=== PATIENT | female | born 1960 | race Two or more races ===

== ENCOUNTER 2017-02-03 18:48 | Emergency (ER) | payer OTHER ==
[~2017-02-03] VITALS: Ht 152.4 cm; Wt 57.6 kg
[~2017-02-03 18:48] MED LIST: AZIT250T PO; PRED20TA PO; PROM118S2 PO
--- NOTE | 2017-02-03 19:28 | EKG ---
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
[2017-02-03] MEDS ORDERED: IV NORMAL SALINE 1,000ML 1,000 ML IV SCH (19:30)
[2017-02-03] MEDS ORDERED: 0.9 % SODIUM CHLORIDE 10 ML DISP.SYRIN. IV ONE (19:30)
[2017-02-03] MEDS ORDERED: IOHEXOL 300 MG/ML 75 ML VIAL. IV ONE (19:30)
[2017-02-03 20:08] LABS: BASO % 0 % (0-3); EOS # 0.2 x10^3/uL (0.0-0.7); EOS % 6 % (0-3); HEMATOCRIT 39.6 % (36.0-47.0); HEMOGLOBIN 13.5 g/dL (12.0-15.5); LYMPH # 0.8 x10^3/uL (1.0-4.8); LYMPH % 18 % (24-48); MEAN CORPUSCULAR HEMOGLOBIN 30 pg (25-35); MEAN CORPUSCULAR HGB CONC 34 g/dL (31-37); MEAN CORPUSCULAR VOLUME 88 fL (79-100); MONO # 0.5 x10^3/uL (0.0-1.1); MONO % 11 % (0-9); NEUT # 2.9 x10^3uL (1.8-7.7); NEUT % 66 % (31-73); PLATELET COUNT 189 x10^3/uL (140-400); RED BLOOD COUNT 4.51 x10^6/uL (3.50-5.40); RED CELL DISTRIBUTION WIDTH 12.7 % (11.5-14.5); WHITE BLOOD COUNT 4.4 x10^3/uL (4.0-11.0)
--- NOTE | 2017-02-03 20:17 | PHYS DOC ---
Past History Past Medical History: No Pertinent History Past Surgical History: No Surgical History Alcohol Use: None Drug Use: None Adult General Chief Complaint Chief Complaint: COUGH HPI HPI She is a pleasant retired 56-year-old female from the [employer] with a history of hypothyroidism and hypertension who presents with a cough that began suddenly after a choking episode while trying to ingest chicken. Her symptoms began approximately 3 days ago while she was eating she felt that she may have actually aspirated a small portion of chicken and her trachea. Since that time she's had increasing worsening nonproductive cough with difficulty clearing her throat. She denies any change in voice, she has had some ear pressure and pain along with nasal congestion. She denies any difficulty tolerating food and fluids at this time. She has seen her primary care doctor twice this week and prescribed cough syrup with codeine and Motrin which has not improved her symptoms. She does relate a brief course of chills and fevers and myalgias that began shortly after the aspiration. She is taking some Tylenol and Motrin but never documented fever. She denies any recent anabiotic use, sick contacts, travel outside the country, or chest pain. She denies any shortness of breath, abdominal pain, rash, joint pain other than the myalgias. Review of Systems Review of Systems Constitutional: Has had some subjective fevers and chills but nothing documented. Eyes: Denies change in visual acuity, redness, or eye pain [] HENT: Has had some nasal congestion and no sore throat despite cough[] Respiratory: He has had a nonproductive cough but no shortness of breath.[] Cardiovascular: No additional information not addressed in HPI [] GI: Denies abdominal pain, nausea, vomiting, bloody stools or diarrhea [] : Denies dysuria or hematuria [] Musculoskeletal: Denies back pain or joint pain she complains of generalized myalgias Integument: Denies rash or skin lesions [] Neurologic: Denies headache, focal weakness or sensory changes [] Endocrine: Denies polyuria or polydipsia [] All other systems were reviewed and found to be within normal limits, except as documented in this note. Current Medications Current Medications Current Medications Medications (Trade) Dose Ordered Sig/Bigg Start Time Stop Time Status Last Admin Dose Admin Iohexol (Omnipaque 300 Mg/ml) 75 ml 1X ONCE 02/03/17 19:30 02/03/17 19:31 DC Sodium Chloride 1,000 ml @ 1,000 mls/hr Q1H 02/03/17 19:30 02/03/17 20:29 02/03/17 19:39 1,000 MLS/HR Sodium Chloride (Normal Saline Flush) 10 ml 1X ONCE 02/03/17 19:30 02/03/17 19:31 DC 02/03/17 19:30 10 ML Allergies Allergies Allergies Coded Allergies Type Severity Reaction Last Updated Verified No Known Allergies Allergy Unknown 02/03/17 Yes Physical Exam Physical Exam Vital signs recorded on the chart patient noted to be hypertensive otherwise normal vital signs Constitutional: Well developed, well nourished, no acute distress, non-toxic appearance. [] HENT: Normocephalic, atraumatic, bilateral external ears normal, oropharynx moist, no oral exudates demonstrates mild erythema no obvious signs of pooling of saliva, patient is tolerating her own saliva without coughing or gagging. There is no stridor, nose normal. TMs are clear without clear signs of serous otitis media bilaterally. [] Eyes: PERRLA, EOMI, conjunctiva normal, no discharge. [] Neck: Normal range of motion, no tenderness, supple, no stridor. No cervical lymphadenopathy [] Cardiovascular:Heart rate regular rhythm, no murmur [] Lungs & Thorax: Bilateral breath sounds clear to auscultation [] Abdomen: Bowel sounds normal, soft, no tenderness, no masses, no pulsatile masses. [] Skin: Warm, dry, no erythema, no rash. [] Extremities: No tenderness, no cyanosis, no clubbing, ROM intact, no edema. [] Neurologic: Alert and oriented X 3, normal motor function, normal sensory function, no focal deficits noted. [] Psychologic: Affect normal, judgement normal, mood normal. [] Current Patient Data Lab Results Laboratory Tests Test 02/03/17 19:30 White Blood Count 4.4 x10^3/uL (4.0-11.0) Red Blood Count 4.51 x10^6/uL (3.50-5.40) Hemoglobin 13.5 g/dL (12.0-15.5) Hematocrit 39.6 % (36.0-47.0) Mean Corpuscular Volume 88 fL (79-100) Mean Corpuscular Hemoglobin 30 pg (25-35) Mean Corpuscular Hemoglobin Concent 34 g/dL (31-37) Red Cell Distribution Width 12.7 % (11.5-14.5) Platelet Count 189 x10^3/uL (140-400) Neutrophils (%) (Auto) 66 % (31-73) Lymphocytes (%) (Auto) 18 % (24-48) L Monocytes (%) (Auto) 11 % (0-9) H Eosinophils (%) (Auto) 6 % (0-3) H Basophils (%) (Auto) 0 % (0-3) Neutrophils # (Auto) 2.9 x10^3uL (1.8-7.7) Lymphocytes # (Auto) 0.8 x10^3/uL (1.0-4.8) L Monocytes # (Auto) 0.5 x10^3/uL (0.0-1.1) Eosinophils # (Auto) 0.2 x10^3/uL (0.0-0.7) Basophils # (Auto) 0.0 x10^3/uL (0.0-0.2) EKG EKG []2 times 7:25 PM 02/03/2017 read by me demonstrated P wave there were QRS is normal sinus rhythm IN interval normal at 140, QRS width is 78 which is normal, QTc of 398 which is also normal, patient's is a normal EKG with no ST segment T- wave changes consistent with acute coronary ischemia. Radiology/Procedures Radiology/Procedures [] [place] [address] IMAGING REPORT Signed PATIENT: SONAL ALONSO ACCOUNT: [id number] : 1960 LOCATION: ER AGE: 56 SEX: F EXAM STATUS: REG ER ORD. PHYSICIAN: MOISÉS HOPKINS MD REASON: cough, shortness of breath PROCEDURE: CT ANGIOGRAPHY CHEST CTA Chest with contrast: Clinical History: GAVE OMNI 300 75ML IV - TOLERATED WELL
CHEST PAIN, COUGH - ASPIRATION, SHORTNESS OF BREATH, POSITIVE INFLUENZA A
NO MEDICAL HISTORY Shortness of breath. Axial helical images of the chest were obtained after the administration of 75 cc of IV Omni 300 and timed appropriately for a pulmonary arterial study. Conventional axial reconstruction was performed in addition to coronal, sagittal and bilateral oblique MIP (maximum intensity projection). This study was ordered to detect possible pulmonary embolism. There are no filling defects to suggest pulmonary embolism. The lungs and pleural margins are clear. There is no mediastinal or hilar lymphadenopathy. The thoracic aorta appears normal. Impression: 1. No evidence of pulmonary embolism. 2. No significant findings. PQRS Compliance Statement: One or more of the following individualized dose reduction techniques were utilized for this examination: 1. Automated exposure control 2. Adjustment of the mA and/or kV according to patient size 3. Use of iterative reconstruction technique Electronically signed by: Pat Mackay III, MD (02/03/2017 9:09 PM) [facility] DICTATED AND SIGNED BY: PAT MACKAY III, MD DATE: 02/03/172105 CC: MOISÉS HOPKINS MD; RULA LAMBERT ~ Course & Med Decision Making Course & Med Decision Making Pertinent Labs and Imaging studies reviewed. (See chart for details) Possibly aspirating some chicken into her lungs. Patient I'm concerned has aspiration pneumonia or may be a chemical pneumonitis. Her lungs are clear to auscultation with no evidence of his or consolidation with breath sounds at of loss. She is comfortable Is now 8:30 PM patient's influenza A swab came back positive. Is now 9:[address] angios the chest does not demonstrate any specific focal infiltrate, pulmonary embolism or other specific disease process causing coughing. Laboratory work is also been reviewed by me Patient tells me that their symptoms given during CC are improved. We reviewed labs and radiology reports with patient white count is normal, patient's troponin is negative, patient's influenza swab is positive. Pro BNP is negative.. Laboratory Tests Test 02/03/17 19:30 White Blood Count 4.4 x10^3/uL (4.0-11.0) Red Blood Count 4.51 x10^6/uL (3.50-5.40) Hemoglobin 13.5 g/dL (12.0-15.5) Hematocrit 39.6 % (36.0-47.0) Mean Corpuscular Volume 88 fL (79-100) Mean Corpuscular Hemoglobin 30 pg (25-35) Mean Corpuscular Hemoglobin Concent 34 g/dL (31-37) Red Cell Distribution Width 12.7 % (11.5-14.5) Platelet Count 189 x10^3/uL (140-400) Neutrophils (%) (Auto) 66 % (31-73) Lymphocytes (%) (Auto) 18 % (24-48) L Monocytes (%) (Auto) 11 % (0-9) H Eosinophils (%) (Auto) 6 % (0-3) H Basophils (%) (Auto) 0 % (0-3) Neutrophils # (Auto) 2.9 x10^3uL (1.8-7.7) Lymphocytes # (Auto) 0.8 x10^3/uL (1.0-4.8) L Monocytes # (Auto) 0.5 x10^3/uL (0.0-1.1) Eosinophils # (Auto) 0.2 x10^3/uL (0.0-0.7) Basophils # (Auto) 0.0 x10^3/uL (0.0-0.2) Sodium Level 142 mmol/L (136-145) Potassium Level 4.0 mmol/L (3.5-5.1) Chloride Level 106 mmol/L (98-107) Carbon Dioxide Level 27 mmol/L (21-32) Anion Gap 9 (6-14) Blood Urea Nitrogen 14 mg/dL (7-20) Creatinine 1.0 mg/dL (0.6-1.0) Estimated GFR (Cockcroft-Gault) 57.8 BUN/Creatinine Ratio 14 (6-20) Glucose Level 119 mg/dL (70-99) H Lactic Acid Level 1.1 mmol/L (0.4-2.0) Calcium Level 8.6 mg/dL (8.5-10.1) Total Bilirubin 0.2 mg/dL (0.2-1.0) Aspartate Amino Transferase (AST) 25 U/L (15-37) Alanine Aminotransferase (ALT) 24 U/L (14-59) Alkaline Phosphatase 72 U/L (46-116) Troponin I Quantitative < 0.017 ng/mL (0-0.055) OX-Cxg-O-Type Natriuretic Peptide 29 pg/mL (0-124) Total Protein 7.1 g/dL (6.4-8.2) Albumin 3.2 g/dL (3.4-5.0) L Albumin/Globulin Ratio 0.8 (1.0-1.7) L Influenza Type A (Rapid) Positive (NEGATIVE) Influenza Type B (Rapid) Negative (NEGATIVE) [] Dragon Disclaimer Dragon Disclaimer This electronic medical record was generated, in whole or in part, using a voice recognition dictation system. Departure Departure: Impression: Primary Impression: Influenza A Disposition: HOME, SELF-CARE Condition: STABLE Referrals: RULA LAMBERT (PCP) Patient Instructions: Influenza A (H1N1), Influenza Facts, Influenza, Adult Additional Instructions: discharge: I've spoken with the patient and/or caregivers. I've explained the patient's condition, diagnosis and treatment plan based on information available to me at this time. I've answered the patient's and/or caregivers questions and addressed any concerns. The patient and/or caregivers have a good understanding the patient's diagnosis, condition and treatment plan as can be expected at this point. Vital signs have been stabilized. The patient's condition is stable for discharge from the emergency department. The patient will pursue further outpatient evaluation with her primary care provider or other designated consulting physician as outlined in the discharge instructions. Patient and/or caregivers are agreeable to this plan of care and follow-up instructions have been explained in detail. The patient and/or caregivers have received these instructions in written format and expressed understanding of these discharge instructions. The patient and her caregivers are aware that if any significant change in condition or worsening of symptoms should prompt him to immediately return to this of the closest emergency department. If an emergent department is not readily available I would encourage him to call 911. Scripts Oseltamivir Phosphate (TAMIFLU) 75 Mg Capsule 1 CAP PO BID, #10 CAP Prov: MOISÉS HOPKINS MD 02/03/17 Naproxen (NAPROSYN) 500 Mg Tablet 1 TAB PO BID, #20 TAB 1 Refill Prov: MOISÉS HOPKINS MD 02/03/17 Guaifenesin/Dextromethorphan (MUCINEX DM ER 1,200-60 MG TAB) 1 Each Tbmp.12hr 1 TAB PO BID, #20 TAB 1 Refill Prov: MOISÉS HOPKINS MD 02/03/17 MOISÉS HOPKINS MD Feb 03, 2017 20:17
[2017-02-03 20:26] LABS: ALBUMIN 3.2 g/dL (3.4-5.0); ALBUMIN/GLOBULIN RATIO 0.8 (1.0-1.7); CALCIUM 8.6 mg/dL (8.5-10.1); GFR 57.8; TOTAL BILIRUBIN 0.2 mg/dL (0.2-1.0); TOTAL PROTEIN 7.1 g/dL (6.4-8.2)
[2017-02-03 20:36] LABS: INFLUENZA B PATIENT NEGATIVE (NEGATIVE)
[2017-02-03 20:38] LABS: INFLUENZA A PATIENT POSITIVE (NEGATIVE)
[2017-02-03 20:45] VITALS: BP 131/82
--- NOTE | 2017-02-03 20:58 | PHYS DOC ---
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 Patient was eating chicken when she may have actually inhaled the chicken into the trachea causing a coughing spell. Since that time patient's had a challenge clearing her throat and began having URI-like symptoms. She's been seen by her primary care physician twice who has prescribed her cough syrup with codeine, and Motrin which have not improved her symptoms. She did she 's had some rigors and chills although no documented fever. She denies any chest pain. She's had increased ear pressure bilaterally with no hearing loss or tinnitus. Had no sick contacts at home, no recent antibiotics, no change in voice, no abdominal pain, no nausea no vomiting or diarrhea. Patient denies any back pain, rash or joint pain. She does have myalgias periodically with the symptoms. Patient has a history of hypothyroidism and hypertension. Review of Systems Review of Systems Constitutional: sHe has had subjective fevers and chills Eyes: Denies change in visual acuity, redness, or eye pain [] HENT: Has had some nasal congestion without sore throat. Respiratory: He does have a nonproductive cough with no shortness of breath. Cardiovascular: No additional information not addressed in HPI [] GI: Denies abdominal pain, nausea, vomiting, bloody stools or diarrhea [] : Denies dysuria or hematuria [] Musculoskeletal: Complains of general myalgias without specific joint pain or swelling. Integument: Denies rash or skin lesions [] Neurologic: Denies headache, focal weakness or sensory changes [] Endocrine: Denies polyuria or polydipsia [] All other systems were reviewed and found to be within normal limits, except as documented in this note. Current Medications Current Medications Current Medications Medications (Trade) Dose Ordered Sig/Bigg Start Time Stop Time Status Last Admin Dose Admin Sodium Chloride 1,000 ml @ 1,000 mls/hr Q1H 02/03/17 19:19 02/03/17 20:18 UNV Sodium Chloride (Normal Saline Flush) 10 ml 1X ONCE 02/03/17 19:30 02/03/17 19:31 UNV Allergies Allergies Allergies Coded Allergies Type Severity Reaction Last Updated Verified No Known Allergies Allergy Unknown 03/18/16 Yes Physical Exam Physical Exam Constitutional: Well developed, well nourished, no acute distress, non-toxic appearance. [] HENT: Normocephalic, atraumatic, bilateral external ears normal, oropharynx moist, no oral exudates, nose normal. [] Eyes: PERRLA, EOMI, conjunctiva normal, no discharge. [] Neck: Normal range of motion, no tenderness, supple, no stridor. [] Cardiovascular:Heart rate regular rhythm, no murmur [] Lungs & Thorax: Bilateral breath sounds clear to auscultation [] Abdomen: Bowel sounds normal, soft, no tenderness, no masses, no pulsatile masses. [] Skin: Warm, dry, no erythema, no rash. [] Back: No tenderness, no CVA tenderness. [] Extremities: No tenderness, no cyanosis, no clubbing, ROM intact, no edema. [] Neurologic: Alert and oriented X 3, normal motor function, normal sensory function, no focal deficits noted. [] Psychologic: Affect normal, judgement normal, mood normal. [] EKG EKG [] Radiology/Procedures Radiology/Procedures [] Course & Med Decision Making Course & Med Decision Making Pertinent Labs and Imaging studies reviewed. (See chart for details) [] Dragon Disclaimer Dragon Disclaimer This electronic medical record was generated, in whole or in part, using a voice recognition dictation system. Departure Departure: Referrals: RULA LAMBERT (PCP) MOISÉS HOPKINS MD Feb 03, 2017 20:58
--- NOTE | 2017-02-03 21:12 | RAD ---
CTA Chest with contrast: Clinical History: GAVE OMNI 300 75ML IV - TOLERATED WELL
CHEST PAIN, COUGH - ASPIRATION, SHORTNESS OF BREATH, POSITIVE INFLUENZA A
NO MEDICAL HISTORY Shortness of breath. Axial helical images of the chest were obtained after the administration of 75 cc of IV Omni 300 and timed appropriately for a pulmonary arterial study. Conventional axial reconstruction was performed in addition to coronal, sagittal and bilateral oblique MIP (maximum intensity projection). This study was ordered to detect possible pulmonary embolism. There are no filling defects to suggest pulmonary embolism. The lungs and pleural margins are clear. There is no mediastinal or hilar lymphadenopathy. The thoracic aorta appears normal. Impression: 1. No evidence of pulmonary embolism. 2. No significant findings. PQRS Compliance Statement: One or more of the following individualized dose reduction techniques were utilized for this examination: 1. Automated exposure control 2. Adjustment of the mA and/or kV according to patient size 3. Use of iterative reconstruction technique Electronically signed by: Glenn Lockhart III, MD (02/03/2017 9:09 PM) [facility]
[2017-02-03] MEDS ORDERED: OSEL75CA PO (21:33)
[2017-02-03] MEDS ORDERED: GUAI1TBM10 PO (21:33)
[2017-02-03] MEDS ORDERED: NAPR500T PO (21:33)
== END 2017-02-03 21:45 | disposition home or self-care (01) ==
LOC: ER 18:48
DX: J09.X2 Influenza due to identified novel influenza A virus with other respiratory manifestations (principal); E03.9 Hypothyroidism, unspecified; I10 Essential (primary) hypertension
CPT/HCPCS: 36415; 71275; 80053; 83605; 83880; 84484; 85025; 87040; 87804; 93005; 96360; 99285; Q9967; J7030

== ENCOUNTER → 2018-07-22 | Outpatient (CLI) | payer OTHER ==
[~2018-07-22] MED LIST changes: +GUAI1TBM10 PO; +NAPR-683 PO; +OSEL75CA PO; -PROM118S2 PO; +PROM118S5 PO
--- NOTE | 2018-07-22 09:57 | RAD ---
CT of the pelvis without contrast, 07/22/2018: HISTORY: Fall, possible coccyx fracture Noncontrast scans were obtained. A bone algorithm was utilized. There is a subtle lucency projected over the mid coccyx on the sagittal images compatible with a nondisplaced fracture. The sacrum is unremarkable. No other fracture or bony abnormality is detected. IMPRESSION: Subtle nondisplaced coccygeal fracture Electronically signed by: Delio Evangelista MD (07/22/2018 9:54 AM) [facility]
== END | disposition home or self-care (01) ==
LOC: CT 09:13
PROVIDERS: ATTEND Family Medicine
DX: S32.2XXA Fracture of coccyx, initial encounter for closed fracture (principal); W19.XXXA Unspecified fall, initial encounter; Y93.89 Activity, other specified; Y92.89 Other specified places as the place of occurrence of the external cause; Y99.8 Other external cause status
CPT/HCPCS: 72192

== ENCOUNTER 2019-10-20 12:03 | Emergency (ER) | payer OTHER ==
[~2019-10-20] VITALS: Ht 152.4 cm; Wt 60.0 kg
[2019-10-20 12:53] LABS: BASO % 1 % (0-3); EOS # 0.2 x10^3/uL (0.0-0.7); EOS % 5 % (0-3); HEMATOCRIT 41.5 % (36.0-47.0); LYMPH # 1.8 x10^3/uL (1.0-4.8); LYMPH % 43 % (24-48); MEAN CORPUSCULAR HEMOGLOBIN 30 pg (25-35); MEAN CORPUSCULAR HGB CONC 34 g/dL (31-37); MEAN CORPUSCULAR VOLUME 88 fL (79-100); MONO # 0.4 x10^3/uL (0.0-1.1); MONO % 9 % (0-9); NEUT # 1.8 x10^3uL (1.8-7.7); NEUT % 43 % (31-73); PLATELET COUNT 237 x10^3/uL (140-400); RED BLOOD COUNT 4.73 x10^6/uL (3.50-5.40); RED CELL DISTRIBUTION WIDTH 13.4 % (11.5-14.5); WHITE BLOOD COUNT 4.3 x10^3/uL (4.0-11.0)
--- NOTE | 2019-10-20 12:54 | RAD ---
Single view of the chest. 10/20/2019 12:26 PM Indication: Reason: dizzy / Spl. Instructions: / History: Comparison: CT angiography of the chest February 03, Findings: There is no focal consolidation. There is no pleural effusion or pneumothorax. The cardiomediastinal silhouette and pulmonary vasculature are within normal limits. No acute osseous abnormalities are seen. Impression: No evidence of acute cardiopulmonary process. Electronically signed by: Brayan Steiner MD (10/20/2019 12:51 PM) [id number]
[2019-10-20 12:59] LABS: CALCIUM 9.1 mg/dL (8.5-10.1); GFR 57.4; POTASSIUM 3.7 mmol/L (3.5-5.1)
[2019-10-20 13:05] LABS: ALBUMIN 3.6 g/dL (3.4-5.0); ALBUMIN/GLOBULIN RATIO 0.9 (1.0-1.7); TOTAL BILIRUBIN 0.3 mg/dL (0.2-1.0); TOTAL PROTEIN 7.4 g/dL (6.4-8.2)
--- NOTE | 2019-10-20 13:35 | PHYS DOC ---
Past History Past Medical History: Hypertension, Hypothyroid Past Surgical History: No Surgical History Alcohol Use: None Drug Use: None General Adult EDM: Chief Complaint: WEAKNESS/GENERALIZED HPI: HPI: 58-year-old female past medical history significant for hypothyroidism and hypertension presents to the ED with complaints of " palpitations, slight nausea and dizziness," with " hot ears," that started today around 11 AM, stating "I could feel my blood rushing." Does report some anxiety with these sxs. Patient states she drinks white tea and had roosevelt cake around 9 AM. Had avocado toast with egg whites this morning-cannot recall any new foods she has not had prior (no seafood in past 24 hours). States she did start fluoxetine on October 10. Her primary care physician had stopped this medication after concern for adverse effect that PCP ruled out. States she checked her heart rate monitor and her heart rate was 97. No prior history of cardiac arrhythmia, no family history of sudden . No history of thyroid storm or myxedema coma. Compliant with her medications. Denies any alcohol or drug use including cocaine or methamphetamines. Not taking any dkyw-adm-mhxeoks decongestants/Sudafed. Currently states her symptoms have resolved. Review of systems: Denies associated fever, chills, diaphoresis, sore throat, cough, headache, neck stiffness, chest pressure or heaviness, v/d/c, dental pain, back pain, leg swelling, rash, hemoptysis, dyspnea, hemoptysis, syncope or neurologic deficits. Heart Score: Risk Factors: Risk Factors: DM, Current or recent (<one month) smoker, HTN, HLP, family history of CAD, obesity. Risk Scores: Score 0 - 3: 2.5% MACE over next 6 weeks - Discharge Home Score 4 - 6: 20.3% MACE over next 6 weeks - Admit for Clinical Observation Score 7 - 10: 72.7% MACE over next 6 weeks - Early Invasive Strategies Allergies: Allergies: Allergies Coded Allergies Type Severity Reaction Last Updated Verified No Known Allergies Allergy Unknown 02/03/17 Yes Physical Exam: PE: Constitutional: Well developed, well nourished, no acute distress, non-toxic appearance. [] HENT: Normocephalic, atraumatic, bilateral external ears normal, oropharynx moist, no oral exudates, nose normal. [] Eyes: EOMI, conjunctiva normal, no discharge. [] Neck: Normal range of motion, no tenderness, supple, no stridor. [] Cardiovascular:Heart rate regular rhythm, no murmur [] Lungs & Thorax: Bilateral breath sounds clear to auscultation [] Abdomen: Bowel sounds normal, soft, no tenderness, no masses, no pulsatile masses. [] Skin: Warm, dry, no erythema, no rash. [] Back: No tenderness, no CVA tenderness. [] Extremities: No tenderness, no cyanosis, no clubbing, ROM intact, no edema. [] Neurologic: Alert and oriented X 3, normal motor function, normal sensory function, no focal deficits noted. [] Psychologic: Affect normal, judgement normal, anxious Current Patient Data: Labs: Laboratory Tests Test 10/20/19 12:32 White Blood Count 4.3 x10^3/uL (4.0-11.0) Red Blood Count 4.73 x10^6/uL (3.50-5.40) Hemoglobin 14.0 g/dL (12.0-15.5) Hematocrit 41.5 % (36.0-47.0) Mean Corpuscular Volume 88 fL (79-100) Mean Corpuscular Hemoglobin 30 pg (25-35) Mean Corpuscular Hemoglobin Concent 34 g/dL (31-37) Red Cell Distribution Width 13.4 % (11.5-14.5) Platelet Count 237 x10^3/uL (140-400) Neutrophils (%) (Auto) 43 % (31-73) Lymphocytes (%) (Auto) 43 % (24-48) Monocytes (%) (Auto) 9 % (0-9) Eosinophils (%) (Auto) 5 % (0-3) H Basophils (%) (Auto) 1 % (0-3) Neutrophils # (Auto) 1.8 x10^3uL (1.8-7.7) Lymphocytes # (Auto) 1.8 x10^3/uL (1.0-4.8) Monocytes # (Auto) 0.4 x10^3/uL (0.0-1.1) Eosinophils # (Auto) 0.2 x10^3/uL (0.0-0.7) Basophils # (Auto) 0.0 x10^3/uL (0.0-0.2) Sodium Level 139 mmol/L (136-145) Potassium Level 3.7 mmol/L (3.5-5.1) Chloride Level 103 mmol/L (98-107) Carbon Dioxide Level 26 mmol/L (21-32) Anion Gap 10 (6-14) Blood Urea Nitrogen 18 mg/dL (7-20) Creatinine 1.0 mg/dL (0.6-1.0) Estimated GFR (Cockcroft-Gault) 57.4 BUN/Creatinine Ratio 18 (6-20) Glucose Level 99 mg/dL (70-99) Calcium Level 9.1 mg/dL (8.5-10.1) Magnesium Level 2.0 mg/dL (1.8-2.4) Total Bilirubin 0.3 mg/dL (0.2-1.0) Aspartate Amino Transferase (AST) 20 U/L (15-37) Alanine Aminotransferase (ALT) 22 U/L (14-59) Alkaline Phosphatase 99 U/L (46-116) Troponin I Quantitative < 0.017 ng/mL (0-0.055) Total Protein 7.4 g/dL (6.4-8.2) Albumin 3.6 g/dL (3.4-5.0) Albumin/Globulin Ratio 0.9 (1.0-1.7) L Vital Signs: Vital Signs Date Time Temp Pulse Resp B/P (MAP) Pulse Ox O2 Delivery O2 Flow Rate FiO2 10/20/19 12:23 98.1 78 16 150/96 (114) 99 Room Air EKG: EKG: Sinus rhythm at 73 bpm, no axis deviation, normal intervals, no T wave inversion, no ST elevations or ST depressions Radiology/Procedures: Radiology/Procedures: [IMAGING REPORT Signed PATIENT: SONAL HAQUE CACCOUNT: [id number] : 1960 LOCATION: ER AGE: 58 SEX: F EXAM STATUS: REG ER ORD. PHYSICIAN: LATOYA RENO DO REASON: dizzy PROCEDURE: CHEST AP ONLY Single view of the chest. 10/20/2019 12:26 PM Indication: Reason: dizzy / Spl. Instructions: / History: Comparison: CT angiography of the chest February 03, Findings: There is no focal consolidation. There is no pleural effusion or pneumothorax. The cardiomediastinal silhouette and pulmonary vasculature are within normal limits. No acute osseous abnormalities are seen. Impression: No evidence of acute cardiopulmonary process. Electronically signed by: Brayan Amezcua MD (10/20/2019 12:51 PM) [id number] DICTATED AND SIGNED BY: BRAYAN AMEZCUA MD DATE: 10/20/19 6455 CC: PCP,UNKNOWN; [facility] ~ Course & Med Decision Making: Course & Med Decision Making Pertinent Labs and Imaging studies reviewed. (See chart for details) Concern for brief, nonspecific symptoms that could resemble a variety of causes (histamine reaction, brief allergy, near syncope, anxiety/panic disorder, thyroid storm, cardiac arrthymia, toxidrome, medication adverse effect, angina? etc), symptoms have resolved prior to ED arrival. EKG unremarkable. Chest x- ray with no acute process. Labs including electrolytes and renal function are negative, troponin is negative. Workup unremarkable. Patient will be given strict ED return precautions for recurrence of symptoms, syncope, chest pain or dyspnea. Encouraged urgent outpatient follow-up with PMD. Life-threatening processes were considered but are low suspicion at this time, given history and physical exam. All patient's questions were answered and pt was stable at time of discharge. I spoken with the patient and her caregivers. I explained the patient's condition, diagnoses and treatment plan based on the information available to me at this time. I have answered the patient and her caregiver's questions and addressed any concerns. The patient and her caregivers have a good understan ding of patient's diagnosis, condition and treatment plan as can be expected at this point. Vital signs have been stable. Patient's condition is stable and appropriate for discharge from the emergency department. Patient will pursue further outpatient evaluation with primary care physician or other designated or consulting physician as outlined in the discharge instructions. The patient and/or caregivers are agreeable to this plan of care and follow-up instructions have been explained in detail. The patient and/or caregivers have received these instructions in written form and have expressed an understanding of the discharge instructions. The patient and/or caregivers are aware that any significant change of condition or worsening of symptoms should prompt immediate return to this or the closest emergency department or call to 911. Kay Disclaimer: Kay Disclaimer: This electronic medical record was generated, in whole or in part, using a voice recognition dictation system. Departure Departure: Impression: Primary Impression: Palpitations Disposition: 01 HOME/RESIDENCE PRIOR TO ADM Condition: STABLE Referrals: PCP,UNKNOWN (PCP) Additional Instructions: Ti Smith MD [id number] [address] Justification of Admission: Justification of Admission: Justification of Admission Dx: N/A LATOYA RENO DO Oct 20, 2019 13:35
[2019-10-20 13:51] VITALS: BP 121/67
[2019-10-20] MEDS: ALPRAZolam 0.25 MG TABLET PO ONE (14:01)
--- NOTE | 2019-10-20 14:09 | EKG ---
[address] [address] Test Date: 2019-10-20 Test Time: 12:33:53 Pat Name: SONAL HAQUE Department: Room: Gender: F University Controller: GENE : 1960 Requested By: LATOYA RENO Order Number: [id number] Reading MD: Measurements Intervals [place] Rate: 73 P: 45 IA: 154 QRS: 31 QRSD: 82 T: 26 QT: 386 QTc: 429 Interpretive Statements SINUS RHYTHM NORMAL ECG RI6.02 No previous ECG available for comparison
== END 2019-10-20 14:04 | disposition home or self-care (01) ==
LOC: ER 12:03
DX: R00.2 Palpitations (principal); R11.0 Nausea; R42 Dizziness and giddiness; I10 Essential (primary) hypertension; E03.9 Hypothyroidism, unspecified
CPT/HCPCS: 36415; 71045; 80053; 83735; 84484; 85025; 93005; 99285

== ENCOUNTER 2020-10-29 16:04 | Emergency (ER) | payer OTHER ==
[~2020-10-29] VITALS: Ht 152.4 cm; Wt 60.0 kg
[2020-10-29 16:13] VITALS: BP 157/92
--- NOTE | 2020-10-29 17:58 | PHYS DOC ---
Past History Past Medical History: Hypertension, Hypothyroid Past Surgical History: No Surgical History Alcohol Use: None Drug Use: None General Adult EDM: Chief Complaint: MULTIPLE COMPLAINTS HPI: HPI: Patient is a 59-year-old female who presents to the ER with intermittent facial flushing and tingling for the last 3 days. Patient is also reporting pressure feeling in her ears. She felt like she needed to take her blood pressure and it was elevated at work today. Patient takes 10 mg of lisinopril. Patient reports that she has had the symptoms in the past and was evaluated in the told her that it was due to anxiety. Patient has mild elevation in her blood pressure upon ER arrival. Patient denies chest pain, shortness of breath, nausea, vomiting, lightheadedness. Review of Systems: Review of Systems: 14 body systems of the review of systems have been reviewed. See HPI for pertinent positive and negative responses, otherwise all other systems are negative, nonpertinent or noncontributory Allergies: Allergies: Allergies Coded Allergies Type Severity Reaction Last Updated Verified No Known Allergies Allergy Unknown 02/03/17 Yes Physical Exam: PE: Constitutional: Well developed, well nourished, no acute distress, non-toxic appearance. [] HENT: Normocephalic, atraumatic, bilateral external ears normal, oropharynx moist, no oral exudates, nose normal. [] Eyes: PERRLA, EOMI, conjunctiva normal, no discharge. [] Neck: Normal range of motion, no stridor Cardiovascular:Heart rate regular rhythm, no murmur [] Lungs & Thorax: Bilateral breath sounds clear to auscultation [] Abdomen: Bowel sounds normal, soft, no tenderness, no masses, no pulsatile masses. [] Skin: Warm, dry, no erythema, no rash. [] Back: Normal range of motion Extremities: No tenderness, no cyanosis, no clubbing, ROM intact, no edema. [] Neurologic: Alert and oriented X 3, normal motor function, normal sensory function, no focal deficits noted. [] Psychologic: Affect normal, judgement normal, mood normal. [] Current Patient Data: Labs: Laboratory Tests Test 10/29/20 17:55 White Blood Count 5.3 x10^3/uL Red Blood Count 4.58 x10^6/uL Hemoglobin 13.9 g/dL Hematocrit 41.3 % Mean Corpuscular Volume 90 fL Mean Corpuscular Hemoglobin 30 pg Mean Corpuscular Hemoglobin Concent 34 g/dL Red Cell Distribution Width 12.7 % Platelet Count 263 x10^3/uL Neutrophils (%) (Auto) 60 % Lymphocytes (%) (Auto) 29 % Monocytes (%) (Auto) 9 % Eosinophils (%) (Auto) 2 % Basophils (%) (Auto) 1 % Neutrophils # (Auto) 3.2 x10^3uL Lymphocytes # (Auto) 1.6 x10^3/uL Monocytes # (Auto) 0.5 x10^3/uL Eosinophils # (Auto) 0.1 x10^3/uL Basophils # (Auto) 0.0 x10^3/uL Sodium Level 139 mmol/L Potassium Level 4.3 mmol/L Chloride Level 105 mmol/L Carbon Dioxide Level 27 mmol/L Anion Gap 7 Blood Urea Nitrogen 19 mg/dL Creatinine 0.8 mg/dL Estimated GFR (Cockcroft-Gault) 73.9 BUN/Creatinine Ratio 24 Glucose Level 107 mg/dL Calcium Level 8.9 mg/dL Total Bilirubin 0.3 mg/dL Aspartate Amino Transf (AST/SGOT) 24 U/L Alanine Aminotransferase (ALT/SGPT) 26 U/L Alkaline Phosphatase 96 U/L Troponin I Quantitative < 0.017 ng/mL Total Protein 7.4 g/dL Albumin 3.8 g/dL Albumin/Globulin Ratio 1.1 Vital Signs: Vital Signs Date Time Temp Pulse Resp B/P (MAP) Pulse Ox O2 Delivery O2 Flow Rate FiO2 10/29/20 16:13 99.0 81 18 157/92 99 EKG: EKG: EKG performed by ER staff at 1746 shows sinus rhythm, no STEMI as read by Dr. Ulrich at 1751[] Radiology/Procedures: Radiology/Procedures: [] Heart Score: C/O Chest Pain: No Risk Factors: Risk Factors: DM, Current or recent (<one month) smoker, HTN, HLP, family histo ry of CAD, obesity. Risk Scores: Score 0 - 3: 2.5% MACE over next 6 weeks - Discharge Home Score 4 - 6: 20.3% MACE over next 6 weeks - Admit for Clinical Observation Score 7 - 10: 72.7% MACE over next 6 weeks - Early Invasive Strategies Course & Med Decision Making: Course & Med Decision Making Pertinent Labs and Imaging studies reviewed. (See chart for details) Patient is a 59-year-old female being seen in the ER for intermittent facial flushing/tingling for 3 days. Work-up in the ER consisted of blood work, EKG. work-up in the ER was unremarkable. Patient's blood pressures continued to be 157/90. Patient advised to follow-up with her primary care provider. I discussed with patient all findings and diagnostic testing as well as the need to follow-up with PCP for further evaluation and treatment or return to the ER if any new or worsening symptoms. Strict return precautions were also discussed at length. Patient voiced understanding and agreement with the plan. Patient is hemodynamically stable at the time of disposition. Whiton Disclaimer: Kay Disclaimer: This electronic medical record was generated, in whole or in part, using a voice recognition dictation system. Departure Departure: Impression: Primary Impression: Facial flushing Disposition: HOME / SELF CARE / HOMELESS Condition: GOOD Referrals: PCP,UNKNOWN (PCP) Patient Instructions: Hypertension Additional Instructions: You were seen in the ER for facial tingling and flushing. Your work-up in the ER was unremarkable. Your blood pressure was 157/92. You will need to follow- up with your primary care provider regarding management of your hypertension. I would advise you to call your primary care provider tomorrow to set up an appointment regarding follow-up with your ER visit. If you develop chest pain, shortness of breath, lightheadedness, confusion please return to the ER immediately. EMERGENCY DEPARTMENT GENERAL DISCHARGE INSTRUCTIONS Thank you for coming to [facility] (ED) today and trusting us with you care. We trust that you had a positivie experience in our Emergency Department. If you wish to speak to the department management, you may call the director at [phone]. YOUR FOLLOW UP INSTRUCTIONS ARE FOLLOWS: 1. Do you have a private Doctor? If you do not have a private doctor, please ask for a resource list of physicians or clinics that may be able to assist you with follow up care. 2. The Emergency Physician has interpreted your x-rays. The X-Ray specialist will also review them. If there is a change in the findings, you will be notified in 48 hours when at all possible. 3. A lab test or culture has been done, your results will be reviewed and you will be notified if you need a change in treatment. ADDITIONAL INSTRUCTIONS AND INFORMATION: 1. Your care today has been supervised by a physician who is specially trained in emergency care. Many problems require more than one evaluation for a complete diagnosis and treatment. We recommend that you schedule your follow up appointment as recommended to ensure complete treatment of you illness or injury. If you are unable to obtain follow up care and continue to have a problem, or if your condition worsens, we recommend that you return to the ED. 2. We are not able to safely determine your condition over the phone nor are we able to give sound medical advice over the phone. For these safety reasons, if you call for medical advice we will ask you to come to the ED for further evaluation. 3. If you have any questions regarding these discharge instructions please call the ED at [phone]. SAFETY INFORMATION: In the interest of safety, wellness, and injury prevention; we encourage you to wear your sealbelt, if you smoke; quite smoking, and we encourage family to use a protective helmet for bicycling and other sporting events that present an increased risk for head injury. IF YOUR SYMPTOMS WORSEN OR NEW SYMPTOMS DEVELOP, OR YOU HAVE CONCERNS ABOUT YOUR CONDITION; OR IF YOUR CONDITION WORSENS WHILE YOU ARE WAITING FOR YOUR FOLLOW UP APPOINTMENT; EITHER CONTACT YOUR PRIMARY CARE DOCTOR, THE PHYSICIAN WHOSE NAME AND NUMBER YOU WERE GIVEN, OR RETURN TO THE ED IMMEDIATELY. BRITNI MURRIETA APRN Oct 29, 2020 17:58
--- NOTE | 2020-10-29 18:00 | EKG ---
[address] [address] Test Date: 2020-10-29 Test Time: 17:46:38 Pat Name: SONAL HAQUE Department: Room: Gender: F Stapler Coil Unit: GENE : 1960 Requested By: BRITNI MURRIETA Order Number: [id number] Reading MD: Measurements Intervals [place] Rate: 86 P: 53 ID: [id number] QRS: 55 QRSD: 84 T: 37 QT: 366 QTc: 441 Interpretive Statements SINUS RHYTHM NORMAL ECG RI6.02 No previous ECG available for comparison
[2020-10-29 18:09] LABS: BASO % 1 % (0-3); EOS # 0.1 x10^3/uL (0.0-0.7); EOS % 2 % (0-3); HEMATOCRIT 41.3 % (36.0-47.0); HEMOGLOBIN 13.9 g/dL (12.0-15.5); LYMPH # 1.6 x10^3/uL (1.0-4.8); LYMPH % 29 % (24-48); MEAN CORPUSCULAR HEMOGLOBIN 30 pg (25-35); MEAN CORPUSCULAR HGB CONC 34 g/dL (31-37); MEAN CORPUSCULAR VOLUME 90 fL (79-100); MONO # 0.5 x10^3/uL (0.0-1.1); MONO % 9 % (0-9); NEUT # 3.2 x10^3uL (1.8-7.7); NEUT % 60 % (31-73); PLATELET COUNT 263 x10^3/uL (140-400); RED BLOOD COUNT 4.58 x10^6/uL (3.50-5.40); RED CELL DISTRIBUTION WIDTH 12.7 % (11.5-14.5); WHITE BLOOD COUNT 5.3 x10^3/uL (4.0-11.0)
[2020-10-29 18:15] LABS: CALCIUM 8.9 mg/dL (8.5-10.1); CREATININE 0.8 mg/dL (0.6-1.0); GFR 73.9; POTASSIUM 4.3 mmol/L (3.5-5.1)
[2020-10-29 18:20] LABS: ALBUMIN 3.8 g/dL (3.4-5.0); ALBUMIN/GLOBULIN RATIO 1.1 (1.0-1.7); TOTAL BILIRUBIN 0.3 mg/dL (0.2-1.0); TOTAL PROTEIN 7.4 g/dL (6.4-8.2)
== END 2020-10-29 18:55 | disposition home or self-care (01) ==
LOC: ER 16:04
DX: R23.2 Flushing (principal); R20.2 Paresthesia of skin; I10 Essential (primary) hypertension; E03.9 Hypothyroidism, unspecified
CPT/HCPCS: 36415; 80053; 84484; 85025; 93005; 99284

== ENCOUNTER 2020-11-26 07:48 | Emergency (ER) | payer OTHER ==
[~2020-11-26] VITALS: Ht 152.4 cm; Wt 50.7 kg
[2020-11-26] MEDS ORDERED: IV NORMAL SALINE 1,000ML 1,000 ML IV ONE (08:30)
--- NOTE | 2020-11-26 08:56 | PHYS DOC ---
Past History Past Medical History: Hypertension, Hypothyroid Past Surgical History: No Surgical History Smoking: Non-smoker Alcohol Use: None Drug Use: None General Adult EDM: Chief Complaint: DIZZY/LIGHT HEADED HPI: HPI: 60-year-old female presents with report of continued episodes of dizziness, mild headache, and sensation of throbbing in her neck veins and sometimes in her groin that has been ongoing since October 29, 2020. Patient has been seen here in the emergency department for this as well as 2-3 times at the [place]. Patient also has been seen at [facility] and was referred to neuro/ENT and cardiology. Patient has followed with both neuro ENT and cardio logy. 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 Patient also seen by cardiology and has been wearing a Holter monitor and is scheduled to have a stress test done. Patient reports she had a normal cardiac echo. Patient reports last night when she laid down she had started to fall asleep and then suddenly awoke feeling like her airway was "cut off ". Patient reports the symptoms resolved. Patient reports she has been diagnosed with anxiety. Patient reports her symptoms are still present and she is concerned that it might be secondary to a "clot in her neck or a aneurysm in her brain ". Patient reports concern for blood clots. Patient denies history of clotting disorder. Denies use of blood thinners. Review of Systems: Review of Systems: Constitutional: Denies fever or chills Eyes: Denies redness or eye pain HENT: Denies nasal congestion or sore throat Respiratory: Denies cough or shortness of breath Cardiovascular: Denies chest pain or palpitations GI: Denies abdominal pain, nausea, or vomiting : Denies dysuria or hematuria; reports increased urinary frequency Musculoskeletal: Denies back pain or joint pain Integument: Denies rash or skin lesions Neurologic: Reports intermittent headache and dizziness, reports a numbing sensation to her right face Complete systems were reviewed and found to be within normal limits, except as documented in this note. Current Medications: Current Meds: Current Medications Medications (Trade) Dose Ordered Sig/Bigg Start Time Stop Time Status Last Admin Dose Admin Sodium Chloride 1,000 ml @ 1,000 mls/hr 1X ONCE 11/26/20 08:30 11/26/20 09:29 UNV Allergies: Allergies: Allergies Coded Allergies Type Severity Reaction Last Updated Verified No Known Allergies Allergy Unknown 02/03/17 Yes Physical Exam: PE: Constitutional: Well developed, well nourished, no acute distress, non-toxic appearance HENT: Normocephalic, atraumatic Eyes: PERRL, EOMI, conjunctiva normal, no discharge, no nystagmus Neck: Normal range of motion, supple Lungs & Thorax: No respiratory distress, equal chest rise and fall Abdomen: Soft, no tenderness Skin: Warm, dry, no erythema, no rash Extremities: No tenderness, ROM intact, no edema Neurologic: Alert and oriented X 3, normal motor function, normal sensory function, no focal deficits noted, cerebellar function intact Psychologic: Affect anxious, judgment normal Current Patient Data: Vital Signs: Vital Signs Date Time Temp Pulse Resp B/P (MAP) Pulse Ox O2 Delivery O2 Flow Rate FiO2 11/26/20 07:54 97.8 90 16 112/86 (95) 98 Room Air EKG: EKG: @0832 NSR at 73bpm, NO ST elevation, QRS 78ms, QT/QTc 368/409ms Radiology/Procedures: Radiology/Procedures: [] Heart Score: C/O Chest Pain: N/A Course & Med Decision Making: Course & Med Decision Making Pertinent Lab studies reviewed. (See chart for details) Neurologically intact female presents with continued episodes of intermittent headache and dizziness. Patient has been seen at multiple emergency departments without significant findings. Patient does report she received a CT head at the [place] which reportedly was negative. Patient also has had multiple blood draws and EKGs. Patient currently wearing a Holter monitor and following with cardiology. Patient also started on Klonopin from neuro ENT. Patient does appear anxious. NIHSS 0. EKG stable. Orthostatic VS stable and without symptoms. Labs obtained and posted to chart. IV fluid hydration given. CT imaging held. Patient advised risk of exposure to radiation is outweighing benefit at this time. There does appear to be an anxiety component. Patient stable for discharge with outpatient follow-up with PCP/cardiology/neuro-ENT. Discussed findings and plan with patient, who acknowledges understanding and agreement. Kay Disclaimer: Kay Disclaimer: This electronic medical record was generated, in whole or in part, using a voice recognition dictation system. Departure Departure: Impression: Primary Impression: Dizziness Disposition: HOME / SELF CARE / HOMELESS Condition: STABLE Referrals: PCP,NO (PCP) Patient Instructions: Anxiety and Panic Attacks, [id number], Dizziness, [id number], Headache, FAQs, Recurrent Migraine Headache Additional Instructions: Please continue follow up with cardiology and Neuro-ENT for further management and evaluation. NIHSS - ED NIH Stroke Scale: NIH Stroke Scale Response (Comments) Value Level of Consciousness: 0 Alert/Responsive 0 LOC Questions: 0 Answers both correctly 0 LOC Commands: 0 Performs both tasks 0 Best Gaze: 0 Normal 0 Visual: 0 No visual loss 0 Facial Palsy: 0 Normal, symmetrical 0 Motor - Left Arm 0 No drift 0 Motor - Right Arm 0 No drift 0 Motor - Left Leg 0 No drift 0 Motor: Right Leg 0 No drift 0 Limb Ataxia: 0 Absent 0 Sensory: 0 No loss 0 Best Language: 0 Normal 0 Dysathria: 0 Normal 0 Extinction and Inattention: 0 Normal 0 Total 0 HASSANEMILE DO Nov 26, 2020 08:56
[2020-11-26 09:19] LABS: BASO % 1 % (0-3); EOS # 0.1 x10^3/uL (0.0-0.7); EOS % 1 % (0-3); HEMATOCRIT 39.9 % (36.0-47.0); HEMOGLOBIN 13.6 g/dL (12.0-15.5); LYMPH # 1.4 x10^3/uL (1.0-4.8); LYMPH % 19 % (24-48); MEAN CORPUSCULAR HEMOGLOBIN 30 pg (25-35); MEAN CORPUSCULAR HGB CONC 34 g/dL (31-37); MEAN CORPUSCULAR VOLUME 89 fL (79-100); MONO # 0.5 x10^3/uL (0.0-1.1); MONO % 8 % (0-9); NEUT # 5.1 x10^3uL (1.8-7.7); NEUT % 72 % (31-73); PLATELET COUNT 298 x10^3/uL (140-400); RED CELL DISTRIBUTION WIDTH 12.6 % (11.5-14.5); WHITE BLOOD COUNT 7.1 x10^3/uL (4.0-11.0)
[2020-11-26 09:46] LABS: BACTERIA,URINE 0 /HPF (0-FEW); BILIRUBIN,URINE NEG (NEG); CLARITY,URINE CLEAR; COLOR,URINE YELLOW; GLUCOSE,URINE NEG (NEG); NITRITE,URINE NEG (NEG); RBC,URINE OCC /HPF (0-2); SQUAMOUS EPITHELIAL CELL,UR OCC /LPF; UROBILINOGEN,URINE 0.2 mg/dL (0.2 mg/dL); WBC,URINE RARE /HPF (0-4)
[2020-11-26 10:00] VITALS: BP 127/84
[2020-11-26 10:11] LABS: CALCIUM 8.8 mg/dL (8.5-10.1); CREATININE 0.7 mg/dL (0.6-1.0); GFR 85.9
[2020-11-26 10:27] LABS: ALBUMIN 3.3 g/dL (3.4-5.0); ALBUMIN/GLOBULIN RATIO 0.9 (1.0-1.7); MAGNESIUM 2.1 mg/dL (1.8-2.4); TOTAL BILIRUBIN 0.3 mg/dL (0.2-1.0); TOTAL PROTEIN 7.1 g/dL (6.4-8.2)
--- NOTE | 2020-11-26 14:01 | EKG ---
[address] [address] Test Date: 2020-11-26 Test Time: 08:32:12 Pat Name: SONAL HAQUE Department: Room: Gender: F Record Maker: FAUSTINO : 1960 Requested By: EMILE HASSAN Order Number: [id number] Reading MD: Measurements Intervals [place] Rate: 73 P: 41 LA: 138 QRS: 38 QRSD: 78 T: 30 QT: 368 QTc: 409 Interpretive Statements SINUS RHYTHM NORMAL ECG RI6.02 No previous ECG available for comparison
== END 2020-11-26 10:53 | disposition home or self-care (01) ==
LOC: ER 07:48
DX: R42 Dizziness and giddiness (principal); R51.9 Headache, unspecified; R20.0 Anesthesia of skin; R35.0 Frequency of micturition; I10 Essential (primary) hypertension; E03.9 Hypothyroidism, unspecified
CPT/HCPCS: 36415; 80053; 81001; 82553; 83735; 84484; 85025; 93005; 96360; 96361; 99284; J7030